=== PATIENT | female | born 2005 | race Caucasian/White ===

== ENCOUNTER 2024-11-22 14:40 | Emergency (ER) | payer OTHER, SELFPAY ==
[2024-11-22 15:11] VITALS: BP 119/76
[2024-11-22 15:35] LABS: % Basophils 1.3 % (0-2); % Eosinophils 4.1 % (0-6); % Immature Granulocytes 0.2 % (0-0.5); % Lymphocytes 48.2 % (20.5-51.1); % Monocytes 8.3 % (1.7-9.3); % Neutrophils 37.9 % (42.2-75.2); Absolute Basophils 0.1 10^3/uL (0-0.2); Absolute Eosinophils 0.2 10^3/uL (0-0.7); Absolute Lymphocytes 2.6 10^3/uL (1.2-3.4); Absolute Monocytes 0.5 10^3/uL (0.1-0.6); Absolute Neutrophils 2.1 10^3/uL (1.4-6.5); Hematocrit 40.7 % (37.0-47.0); Hemoglobin 13.2 g/dL (12.0-16.0); Mean Corp Hgb Conc. 32.4 g/dL (33.0-37.0); Mean Corpuscular Hgb 26.4 pg (27.0-31.0); Mean Corpuscular Volume 81.4 fL (81.0-99.0); Mean Platelet Volume 9.5 fL (7.4-10.4); Nucleated Red Blood Cells % 0 %; Platelet Count 261 10^3/uL (130-400); Red Cell Dist. Width 13.9 % (11.5-14.5); White Blood Cell Count 5.4 10^3/uL (4.8-10.8)
[2024-11-22 15:47] LABS: HCG, Serum Qualitative Screen Negative
[2024-11-22 15:50] LABS: ALT (SGPT) 52 U/L (0-35); AST (SGOT) 34 U/L (14-36); Albumin 4.7 g/dl (3.5-5.0); Alkaline Phosphatase 64 U/L (38-126); Blood Urea Nitrogen 10 mg/dl (7-17); Calcium 10.1 mg/dl (8.4-10.2); Carbon Dioxide 27 mmol/L (22-30); Chloride 103 mmol/L (98-107); Glucose 97 mg/dl (70-99); Potassium 4.7 mmol/L (3.5-5.1); Sodium 140 mmol/L (135-145); Total Bilirubin 0.5 mg/dl (0.2-1.3); Total Protein 7.6 g/dl (6.3-8.2); eGFR > 60.00
--- NOTE | 2024-11-22 18:52 | ED.GENMED ---
History of Present Illness
General
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
Time Seen by Provider: 11/22/24 16:36
History of Present Illness
History of Present Illness:
19-year-old female presents to the emergency department for evaluation of right lower quadrant abdominal pain ongoing for the past 4 months. This has been gradually worsening. Denies any vaginal bleeding or regular menstrual periods no associated
night sweats or weight loss. Does have underlying IBS, denies any change to her chronic bowel symptoms.
Past History
Social History
Tobacco: Non-smoker
Alcohol: None
Review of Systems
Review of Systems
Allergies reviewed?: Yes
All Other Systems: ROS reviewed and negative except as documented in HPI and ROS
Phy Exam
Physical Exam
Physical Exam:
GEN: Well appearing, NAD, WDWN
HEENT: Oral mucosa moist, no scleral icterus
Cardiac: Regular rate
Lung: No respiratory distress, no tachypnea
Abdomen: Soft, grossly nontender, no masses
MSK: No gross deformity or injuries
Skin: Good color, no pallor or jaundice, no rashes
Neuro: AO x3, moves all extremities freely
Psych: Calm, cooperative
Course
Orders/Labs/Results
Orders:
Orders
11/22/24 15:17
Test Result ONCE
11/22/24 15:19
US Pelvis W Transvag Combined Urgent
Comment: pt filling
Reason For Exam: right sided pain
11/22/24 15:28
CMP [Comprehensive Metabolic Panel] Urgent
Complete Blood Count/With Diff Urgent
HCG, Serum Qualitative Screen Urgent
Abnormal Lab Results
11/22/24
15:28
MCH 26.4 L pg
(27.0-31.0)
MCHC 32.4 L g/dL
(33.0-37.0)
Neutrophils % 37.9 L %
(42.2-75.2)
ALT 52 H U/L
(0-35)
11/22/24 15:28
11/22/24 15:28
Vital Signs
Initial and Last Documented VS:
Initial Vital Signs
Temp Pulse Resp BP Pulse Ox
98.3 F 75 16 119/76 100
11/22/24 15:11 11/22/24 15:11 11/22/24 15:11 11/22/24 15:11 11/22/24 15:11
Last Documented Vital Signs
Temp Pulse Resp BP Pulse Ox
98.3 F 75 16 119/76 100
11/22/24 15:11 11/22/24 15:11 11/22/24 15:11 11/22/24 15:11 11/22/24 15:11
MDM/Problems Addressed
MDM/Problems Addressed:
Ultrasound unremarkable. Given the chronicity of the pain I do not see an indication for CT, recommend outpatient primary care follow-up
*Critical Care Note
Total Time (30-74mins, 75-104mins- exclusive of procedures): Not Applicable
ED Attending Note
-
Portions of this chart may have been created with voice recognition software.� Occasional wrong word or��sound alike� substitutions may have occurred due to the inherent limitations of voice recognition software.
Discharge Plan
Departure
Patient Disposition: Home (Routine Discharge)
Date of Disposition: 11/22/24
Time of Disposition: 18:52
Patient with high blood pressure during this ER visit?: No
Discharge Problem:
Right lower quadrant abdominal pain
Instructions: Abdominal Pain
Prescriptions:
No Action
ondansetron 4 MG tablet,disintegrating
4 mg PO Q8HPRN PRN (Reason: Nausea/Vomiting) Qty: 10 0RF
ondansetron 4 MG tablet,disintegrating
4 mg PO TIDPRN PRN (Reason: nausea/vomiting) Qty: 8 0RF
Referrals:
David Stanley MD [Family Provider] -
Activity Restrictions/Additional Instructions:
Discuss either an MRI or CT scan of your abdomen with your primary doctor
Interventions
Interventions:
*Risk Screen - Suicide Last Done: 11/22/24 15:11
*General Assessment Last Done: 11/22/24 15:11
ED- Fall Risk Assessment Last Done: 11/22/24 17:07
*Nursing Disposition Last Done: 11/22/24 19:03
ED-Female Genitourinary Assessment Last Done: 11/22/24 17:07
Discharge Date and Time
Discharge Date/Time: 11/22/24 19:08
Print Language: MONGOLIAN
== END 2024-11-22 19:08 | disposition home or self-care (01) ==
LOC: EMR 14:40
PROVIDERS: EMERGENCY PHYSICIAN Emergency Medicine; FAMILY PHYSICIAN Family Medicine
DX: R10.31 Right lower quadrant pain (principal); K58.9 Irritable bowel syndrome, unspecified; Z88.8 Allergy status to other drugs, medicaments and biological substances
CPT/HCPCS: 99284; 76830; 76856; 80053; 84703; 85025

== ENCOUNTER 2024-11-25 00:40 | Emergency (ER) | payer OTHER, SELFPAY ==
[2024-11-25 00:46] VITALS: BP 142/94
--- NOTE | 2024-11-25 04:17 | ED.GENMED ---
History of Present Illness
General
Chief Complaint: Skin Surface Trauma
Source: patient
Exam Limitations: none
Time Seen by Provider: 11/25/24 04:14
History of Present Illness
History of Present Illness:
See MDM
Past History
Past History
ED Past Medical History: None
ED Past Surgical History: None
Social History
Tobacco: Non-smoker
Alcohol: None
Phy Exam
Physical Exam
Physical Exam:
See MDM
Course
Orders/Labs/Results
Orders:
Orders
11/25/24 04:31
Tetanus/Diphth/Acelpertussis [Adacel] 0.5 ml IM .ONCE ONE
Vital Signs
Initial and Last Documented VS:
Initial Vital Signs
Temp Pulse Resp BP Pulse Ox
98.1 F 86 20 142/94 100
11/25/24 00:46 11/25/24 00:46 11/25/24 00:46 11/25/24 00:46 11/25/24 00:46
Last Documented Vital Signs
Temp Pulse Resp BP Pulse Ox
98.1 F 86 20 142/94 100
11/25/24 00:46 11/25/24 00:46 11/25/24 00:46 11/25/24 00:46 11/25/24 00:46
Procedures
Laceration Closure
left palmar lateral hypothenar eminence :
Status of Wound: clean
Size of Wound in cm: 3
Description of Wound Edges: sharp
Preparation: cleaned with soap & water and cleaned with Betadine
Anesthesia: 1% Lidocaine with epi
Revision/Debridement: routine- no revision
Wound exploration: explored to base- no FB
Type of Closure: single layer closure
Skin Closure Material: 4-0 nylon
Number of sutures: 5
MDM/Problems Addressed
Differential Diagnosis Includes:
HPI and MDM Narrative:
19-year-old female presenting for evaluation of left hand laceration. Patient reached into her pocket and her pocket knife was open. The triage note mentions right hand laceration but it is her left hand. She is right-hand dominant. Patient
unsure if tetanus is up-to-date. Will suture the laceration. Patient has full range of motion and sensation in her hand. However, there is mild proximal tenderness when the pinky is extended. We discussed the possibility of partial ligament cut
and discussed follow-up with hand. Will place in a splint
Physical exam
General: Well appearing and non-toxic
HEENT: protecting airway
Neck: appears supple
CV: No evidence of cyanosis
Resp: No accessory muscle use
Abd: Non-distended
Extremities: 3 cm laceration to the hypothenar eminence of left hand on the palmar aspect. Range of motion of pinky is intact. Mild proximal palmar tenderness with finger extension
Neuro: alert
Psych: Normal affect
Skin: Intact
Problems Addressed including Acute and Chronic Conditions affecting care:
1. Hand laceration
Acuity: acute
Prognosis: stable
Details: Will place stitches. There is the possibility of a very mild cut to the ligament. Patient placed in volar splint discussed follow-up with hand
Differential Diagnosis (but not limited to): Laceration, ligament injury
Testing considered: X-ray but no bony tenderness
Drug therapy (if applicable): OTC meds, please see d/c instruction regarding Rx drugs
Amount and/or Complexity of Data Reviewed
Clinical info obtained from: Patient
External data reviewed: N/A
Labs I independently reviewed (but not limited to): N/A
Radiology: N/A
Pulse Ox: not hypoxic
EKG independently reviewed: N/A
Career Services Coordinator: N/A
Critical Care: N/A
Risk of Complication:
Social Determinants of health: Good social support
Discussed with other providers: N/A
Escalation of Care includes Admit/Obs: After being observed in the Emergency Department, pt stable for discharge.
Occasional wrong word or 'sound a like' substitutions may have occurred due to the inherent limitations of voice recognition software. Read the chart carefully and recognize, using context, where substitutions have occurred.
*Critical Care Note
Total Time (30-74mins, 75-104mins- exclusive of procedures): Not Applicable
ED Attending Note
-
Portions of this chart may have been created with voice recognition software.� Occasional wrong word or��sound alike� substitutions may have occurred due to the inherent limitations of voice recognition software.
Discharge Plan
Departure
Patient Disposition: Home (Routine Discharge)
Date of Disposition: 11/25/24
Time of Disposition: 04:33
Patient with high blood pressure during this ER visit?: Yes
Discharge Problem:
Hand laceration
Instructions: Laceration Repair With Stitches (DC), BLOOD PRESSURE
Prescriptions:
No Action
ondansetron 4 MG tablet,disintegrating
4 mg PO Q8HPRN PRN (Reason: Nausea/Vomiting) Qty: 10 0RF
ondansetron 4 MG tablet,disintegrating
4 mg PO TIDPRN PRN (Reason: nausea/vomiting) Qty: 8 0RF
Referrals:
Jasper Gamble MD [Active] -
Activity Restrictions/Additional Instructions:
Keep wound clean and dry, change dressing if it becomes soiled or wet. Watch for signs of infection: fever over 100.5', increasing pain, red streaks around wound, swelling, drainage of pus, or bad smell. If any of these happen, return to ED
promptly. Return to ED or make an appointment with your doctor to have the 5 sutures removed in 7-10 days. All wounds may scar, however you may reduce the appearance of scarring by avoiding sun exposure to the scar and applying skin moisturizer
with spf protection to the scar once the wound is healed.
As we discussed, there is the possibility of a small cut of the ligament of your finger. Please follow-up with the hand surgeon.
Interventions
Interventions:
*Risk Screen - Suicide Last Done: 11/25/24 00:46
*General Assessment Last Done: 11/25/24 04:20
*Neglect/Abuse Screening Last Done: 11/25/24 00:46
ED- Fall Risk Assessment Last Done: 11/25/24 04:20
*ED COVID-19 Vaccine History Last Done: 11/25/24 04:20
ED-Skin Assessment Last Done: 11/25/24 04:20
Discharge Date and Time
Print Language: COMORAN
[2024-11-25] MEDS: ADACEL 0.5 ML IM (05:06)
== END 2024-11-25 05:20 | disposition home or self-care (01) ==
LOC: EMR 00:40
PROVIDERS: EMERGENCY PHYSICIAN Student in an Organized Health Care Education/Training Program; FAMILY PHYSICIAN Family Medicine
DX: S61.412A Laceration without foreign body of left hand, initial encounter (principal); W26.0XXA Contact with knife, initial encounter
CPT/HCPCS: 12002; 90471; 99282; 90715

== ENCOUNTER 2025-10-27 20:36 | Emergency (ER) | payer SELFPAY ==
[2025-10-27 20:38] VITALS: BP 142/95
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
== END 2025-10-27 22:40 | disposition home or self-care (01) ==
LOC: EMR 20:36
PROVIDERS: EMERGENCY PHYSICIAN Emergency Medicine; FAMILY PHYSICIAN Family Medicine
DX: S16.1XXA Strain of muscle, fascia and tendon at neck level, initial encounter (principal); M54.9 Dorsalgia, unspecified; R11.10 Vomiting, unspecified; V43.52XA Car driver injured in collision with other type car in traffic accident, initial encounter
CPT/HCPCS: 99282